=== PATIENT | female | born 1980 | race African-American/Black ===

== ENCOUNTER 2021-07-10 21:39 | Emergency (ER) | payer OTHER ==
[2021-07-10 22:11] VITALS: BP 140/95; PULSE 90; TEMP 98.3; BMI 37.2
[2021-07-10] MEDS ORDERED: ACETAMINOPHEN 500 MG TABLET (FP) PO ONE (22:41)
[2021-07-10] MEDS ORDERED: ACETAMINOPHEN 325 MG TABLET (FP) ONE (22:44)
== END 2021-07-11 00:54 | disposition home or self-care (01) ==
LOC: JER 21:39
DX: D25.9 Leiomyoma of uterus, unspecified (principal); R10.30 Lower abdominal pain, unspecified; N93.9 Abnormal uterine and vaginal bleeding, unspecified
CPT/HCPCS: 76856-TC; 84703; 99284-25